=== PATIENT | male | born 1955 | race Caucasian/White ===

== ENCOUNTER 2017-03-21 14:30 | Emergency (ER) | payer OTHER ==
[~2017-03-21] VITALS: Ht 167.6 cm; Wt 81.6 kg
--- NOTE | 2017-03-21 14:48 | NUR ---
Pt was seen at [facility] earlier this AM for urinary retention, garcia inserted there and converted for leg bag. Pt states [facility] told him to come to [place] [facility] to be seen by Urologist. Pt has 3/10 pain, but no other complaints, no distress noted.
== END 2017-03-21 15:26 | disposition home or self-care (01) ==
LOC: ER 14:32
DX: N40.1 Benign prostatic hyperplasia with lower urinary tract symptoms (principal); R33.8 Other retention of urine; J45.909 Unspecified asthma, uncomplicated
CPT/HCPCS: A4663; J7030